=== PATIENT | male | born 1945 | race Asian ===

== ENCOUNTER 2020-10-06 10:40 | Outpatient (CLI) | payer OTHER ==
[~2020-10-06 10:40] MED LIST: ASPIRIN325 M1 PO; CAPT25TA PO; CENTRUM SILVER ULTR1 PO; GLYBURIDE2.5 MG PO; HYDROCHLOROT12.5 M1 PO; METF500T PO; METO50TA27 PO; ZERIT15 MG OR
== END 2020-10-06 19:22 | disposition home or self-care (01) ==
LOC: RAD 10:40
PROVIDERS: ATTEND Nurse Practitioner
DX: R05 Cough (principal); R06.89 Other abnormalities of breathing